=== PATIENT | male | born 1960 | race Caucasian/White ===

== ENCOUNTER 2016-08-15 10:01 | Emergency (ER) | payer MEDICARE ==
[2016-08-15] MEDS ORDERED: OPTIRAY 350 100 ML VIAL HMH IV ONE (10:02)
[2016-08-15] MEDS ORDERED: KETOROLAC 30 MG/ML VIAL ONE (12:12)
[2016-08-15] MEDS ORDERED: DILAUDID 1 MG/ML AMP ONE (15:25)
== END 2016-08-15 16:13 | disposition home or self-care (01) ==
LOC: ER 10:01
DX: M54.5 Low back pain (principal); Z79.899 Other long term (current) drug therapy; F17.210 Nicotine dependence, cigarettes, uncomplicated; Z79.84 Long term (current) use of oral hypoglycemic drugs; Z79.4 Long term (current) use of insulin
CPT/HCPCS: 36415; 74177; 80053; 81003; 85025; 96374; 96375; 99284; J1170; J1885; Q9967